=== PATIENT | male | born 1990 | race Caucasian/White ===

== ENCOUNTER 2025-01-06 05:27 | Emergency (ER) | payer BC, SELFPAY ==
[2025-01-06 05:32] VITALS: BP 131/95; PULSE 75; RESP 18; TEMP 36.6; O2SAT 100; BMI 26.6
[2025-01-06 06:30] VITALS: BP 167/89; PULSE 61; RESP 16; TEMP 36.7; O2SAT 98
--- NOTE | 2025-01-06 07:14 | ED.VIS.BACK ---
HPI History of Present Illness Chief Complaint: Back Informant: patient and spouse/S.O. Narrative Narrative: Presents with worsening lower back pain bilaterally. Symptoms started at noon yesterday he was lifting 5 gallon paint buckets he stumbled tweaking his lower back. No pain down the legs no loss of bowel or bladder control. No fevers. No history of IV drug use. He had meloxicam for which he took and then took additional Advil later. No urinary symptoms. Symptoms worse with movement. Significant other had a TENS unit which was placed. He did go to chiropractor yesterday for which he is seen in the past. He had manipulation done. Reports told he had possible slipped disks. He awakened at 4 AM today with worsening pain therefore came here. [facility] Medical History Smoker Marijuana smoker Foreign body Home Medications ?Medication ?Instructions ?Recorded ?Last Taken ?Type bupropion HCl 150 mg tablet,12 hr 150 mg PO DAILY 01/06/25 Unknown History sustained-release (Wellbutrin SR) diazepam 5 mg tablet 5 mg PO Q8 PRN Muscle Spasm #12 01/06/25 Unknown Rx tabs doxycycline monohydrate 100 mg 100 mg PO DAILY 01/06/25 Unknown History tablet ibuprofen 600 mg tablet 600 mg PO Q6H PRN PRN pain #20 01/06/25 Unknown Rx TABLETS meloxicam 15 mg tablet 15 mg PO DAILY PRN pain 01/06/25 Unknown History prednisone 20 mg tablet 60 mg (3 x 20 mg) PO DAILY #15 01/06/25 Unknown Rx TABLETS Allergy/AdvReac Type Severity Reaction Status Date / Time amoxicillin AdvReac Hives Verified 01/06/25 05:30 Penicillins AdvReac Hives Verified 01/06/25 05:30 Surgical History Hx of wisdom tooth extraction Social History Smoking Status: Current every day smoker tobacco type: cigarettes ROS ROS ED Constitutional Constitutional ED: Denies fever(s) Cardiovascular Cardiovascular: Denies chest pain Respiratory/Chest Respiratory/Chest: Denies cough Gastrointestinal Gastrointestinal: Denies diarrhea or vomiting Musculoskeletal Musculoskeletal: Reports back pain; Denies none Integumentary Denies rash or wounds Neurologic Neurologic: Denies weakness EXAM Physical Exam Const Vital Signs: 01/06/25 05:32 01/06/25 05:38 01/06/25 06:30 Temperature 97.8 F 98.0 F Temperature Source Oral Pulse Rate 75 61 Respiratory Rate 18 16 Respiratory Effort Normal Non-Labored Respiratory Pattern Normal Blood Pressure 131/95 H 167/89 H Blood Pressure Mean 107 115 Pulse Ox 100 98 Oxygen Delivery Method Room Air Positive well nourished and well developed General Appearance ED: well developed and NAD HEENT Reports moist mucous membranes normocephalic and atraumatic Eyes General Eye ED: Yes normal appearance of both eyes Neck full ROM Chest Wall Chest: Negative for tenderness Resp normal respiratory effort and normal air movement Effort and Inspection: symmetric chest movement; Negative for respiratory distress Cardio regular rate, regular rhythm and no murmurs Peripheral Pulses: pulses 2+ throughout GI normal to inspection, nondistended, normoactive bowel sounds and non-tender Palpation: Negative for guarding or rebound tenderness present Back/Spine Back/Spine Narrative: Reproducible paralumbar tenderness no midline tenderness no step-off straight leg test negative bilaterally. 1+ patellar reflex bilaterally. Extremity normal to inspection General Extremety ED: Negative for edema or tenderness General Extremity: Negative for edema Neuro oriented x3 and no sensory deficits noted Sensorium / Orientation: awake and alert Skin no rashes or lesions noted and no wounds MDM MDM MDM Narrative Medical decision making narrative: Interventions / MDM: Differential diagnosis: Acute lumbar strain. Diagnosis considered but do not suspect: No cauda equina symptoms. No lumbar radiculopathy symptoms. My EKG interpretation: N/A Imaging independently reviewed and interpreted by myself: N/A External documents reviewed: N/A Test considered but not ordered:N/A ED course: Patient history consistent with lumbar strain. No cauda equina symptoms. Started on muscle relaxers with Valium along with prednisone. We will use ibuprofen. He will hold his meloxicam. Prednisone continued Valium continued as needed. Outpatient follow-up with his doctor. All questions were answered. Re-evaluation: stable Disposition discussed with patient/family/significant other: Patient and significant other Case discussed with consulting clinician: N/A This note was generated with [employer] dictation software. It may contain incorrect words, spelling, and punctuation that were not noted in checking the note before signing. Discharge Plan Triage Chief Complaint: Back ED Provider: Teto Cantor Dx/Rx/DC Orders Clinical Impression: Acute lumbar myofascial strain, Back pain Instructions: ED Back Sprain/Strain Prescriptions: New ibuprofen 600 mg tablet 600 mg PO Q6H PRN PRN (Reason: pain) Qty: 20 0RF diazepam 5 mg tablet 5 mg PO Q8 PRN (Reason: Muscle Spasm) Qty: 12 0RF prednisone 20 mg tablet 60 mg PO DAILY Qty: 15 0RF No Action doxycycline monohydrate 100 mg tablet 100 mg PO DAILY bupropion HCl [Wellbutrin SR] 150 mg tablet sustained-release 12 hr 150 mg PO DAILY meloxicam 15 mg tablet 15 mg PO DAILY PRN (Reason: pain) Primary Care Provider: Dre Whitney Referrals: Dre Whitney MD [Primary Care Provider] - 1-2 Weeks Activity Restrictions/Additional Instructions: Hold your meloxicam. Take prescription medicines as prescribed. No driving or heavy machinery while using diazepam. Follow-up with your doctor. Print Language: Grenadian Disposition Disposition: Home, Self Care Discharge Date/Time: 01/06/25 06:36
== END 2025-01-06 06:36 | disposition home or self-care (01) ==
PROVIDERS: Emergency Provider Emergency Medicine; Visit Provider Emergency Medicine
DX: S39.012A Strain of muscle, fascia and tendon of lower back, initial encounter (principal); F17.210 Nicotine dependence, cigarettes, uncomplicated; X50.0XXA Overexertion from strenuous movement or load, initial encounter
CPT/HCPCS: 99285

== ENCOUNTER 2025-01-25 06:54 | Emergency (ER) | payer BC, SELFPAY ==
[2025-01-25 06:55] VITALS: BP 164/103; PULSE 75; RESP 18; TEMP 36.8; O2SAT 98; BMI 28.1
[2025-01-25 06:59] VITALS: BP 164/103; PULSE 65; RESP 18; TEMP 36.8; O2SAT 100
--- NOTE | 2025-01-25 07:17 | CT_ITS ---
PROCEDURE: ABDOMEN/PELVIS WITHOUT CONT 01/25/2025 REASON FOR EXAM: PAIN Renal stone. Testicular pain TECHNIQUE: ABDOMEN/PELVIS WITHOUT CONT Noncontrast technique limits evaluation of the abdominal and pelvic viscera. Coronal and Sagittal reconstruction series were provided. One or more dose reduction techniques were used (e.g., Automated exposure control, adjustment of the mA and/or kV according to patient size, use of iterative reconstruction technique). RADIATION DOSE SUMMARY: CTDlvol: 9.5 mGy DLP: 561 mGycm COMPARISON: None FINDINGS: Lung bases: Clear Liver: Normal Gallbladder: Normal Spleen: Normal Pancreas: Normal Adrenals: Normal Kidneys: Mild congestion at the right kidney. Mild hydronephrosis and hydroureter related to a 4.3 mm calculus at the ureterovesical junction, UVJ. Of the left kidney and collecting system are unremarkable. Bladder: No bladder distention or bladder wall thickening. Reproductive Organs: Normal prostate Bowel: Stomach is unremarkable. Small bowel and colon are unremarkable. Appendix: Normal Lymph nodes: None appear enlarged. Vasculature: Very mild atherosclerotic plaque without aneurysm. Peritoneum / Retroperitoneum: No free air or free fluid. No mass. Bones: Normal Abdominal wall: Intact. No inguinal hernia seen. CT/Abdomen/Pelvis without Cont IMPRESSION: Mild hydronephrosis, hydroureter related to a 4.3 mm calculus located at the ri ght ureterovesical junction. Very mild aortic atherosclerosis without aneurysm. This is greater than would be expected for age. Correlate with risk factors. Reading Location: [id number]
--- NOTE | 2025-01-25 07:22 | EDS_ITS ---
HPI History of Present Illness Chief Complaint: Male Pain/Injury Narrative Narrative: Chief complaint and HPI: Right flank pain. 34-year-old male with past medical history of urolithiasis but does not follow with urology presents for evaluation of right flank pain. Onset 2 days ago. Pain increased today and is radiating into the right testicle. States he went to a [facility] yesterday and they started him on Flomax and gave him ibuprofen. Associated symptom is nausea and difficulty urinating. Denies any fever, chills, shortness of breath, chest pain. Review of systems: See HPI Medications: As listed on the chart Allergies: As listed on the chart PFSH: Per chart Vital signs: As listed on the chart. Reviewed. Physical exam: Gen: A&O x3, moving around in the bed trying to get comfortable Head: Normocephalic, atraumatic Eyes: No sclera icterus, conjunctiva clear ENT: Moist mucous membranes Neck: Trachea midline, No JVD CV: RRR, no murmurs, no peripheral edema Resp: Lungs CTA BL, no w/r/c GI: Abd soft, non-distended, tender to palpation in the right flank, no r/r/g : No CVA tenderness. Circumcised penis. No penile tenderness or discharge. No penile or testicular swelling. Normal lie and position of the testicles. No testicular masses or skin changes. Right testicle diffusely tender to palpation. Cremasteric reflexes intact and equal bilaterally. No rashes. No palpable hernias. Musc: Full ROM, no deformity Skin: Warm, dry Neuro: Alert, oriented, grossly intact, sensation intact Psych: Cooperative, appropriate mood and affect [facility] Medical History Smoker Marijuana smoker Foreign body Home Medications ?Medication ?Instructions ?Recorded ?Last Taken ?Type bupropion HCl 150 mg tablet,12 hr 150 mg PO DAILY 12/14 11/06 Unknown History sustained-release (Wellbutrin SR) diazepam 5 mg tablet 5 mg PO Q8 PRN Muscle Spasm #12 01/06/25 Unknown Rx tabs doxycycline monohydrate 100 mg 100 mg PO DAILY 5 Unknown History tablet ibuprofen 600 mg tablet 600 mg PO Q6H PRN PRN pain # 20 01/06/25 Unknown Rx TABLETS meloxicam 15 mg tablet 15 mg PO DAILY PRN pain 12/14 11/06 Unknown History tamsulosin 0.4 mg capsule 0.4 mg PO Q24H 01/25/25 Unkn own History Allergy/AdvReac Type Severity Reaction Status Date / Time amoxicillin AdvReac Hives Verified 01/06/25 05:30 Penicillins AdvReac Hives Verified 01/06/25 05:30 Surgical History Hx of wisdom tooth extraction Social History Smoking Status: Current every day smoker tobacco type: cigarettes EXAM Physical Exam Const Vital Signs: 01/25/25 06:55 01/25/25 06:59 01/25/25 07:59 Temperature 98.2 F 98.2 F 97.6 F L Temperature Source Temporal Temporal Temporal Pulse Rate 75 65 56 L Respiratory Rate 18 18 16 Blood Pressure 164/103 H 164/103 H 161/103 H Blood Pressure Mean 123 123 122 Pulse Ox 98 100 97 Oxygen Delivery Method Room Air Room Air Room Air MDM MDM MDM Narrative Medical decision making narrative: 34-year-old male with past medical history of urolithiasis but does not follow with urology presents for evaluation of right flank pain. Onset 2 days ago. Pain increased today and is radiating into the right testicle. States he went to a [facility] yesterday and they started him on Flomax and gave him ibuprofen. Associated symptom is nausea and difficulty urinating. Differential diagnosis includes but is not limited to urolithiasis, urinary retention, UTI, pyelonephritis, suspect less likely testicular pathology although in the differential. NS bolus, Zofran, morphine ordered for symptoms. Abdominal pain workup ordered including CT abdomen pelvis without contrast. Given patient is endorsing difficulty urinating will perform bladder scan. Patient's bladder scan is only in the 50s. No urinary retention. CBC without leukocytosis or anemia. BMP unremarkable without QUAN. Lactic acid unremarkable. Urine positive for blood but negative for UTI. CT abdomen pelvis shows mild hydronephrosis, hydroureter related to a 4.3 mm calculus located at the right UVJ. Very mild aortic atherosclerosis. Testicular ultrasound shows small bilateral hydroceles. No torsion. On reevaluation, patient still in pain despite Toradol, morphine. Dilaudid ordered. He will warrant admission for pain control. Patient states that he does not want to be admitted. He states he would rather discharge home with pain medicine. Patient did receive relief from Dilaudid. He is comfortable in the bed. I did inform him that there is a chance that his pain will recur and reiterated my concern for home pain control. He states that he absolutely does not want to be admitted. Patient will be discharged home on narcotics for pain control and antinausea medicine. He is to continue the Flomax. Follow-up with urology. Return precautions explained. He confirmed understand the plan. Patient stable to discharge home. Impression: 1. Right UVJ urolithiasis with a 4.3 mm calculus, mild hydronephrosis and hydroureter 2. Right testicle pain secondary to #1 Lab Data Labs: Laboratory Results - last 24 hr 01/25/25 01/25/25 01/25/25 07:03 07:39 07:40 WBC 8.6 RBC 4.88 Hgb 15.5 Hct 44.4 MCV 91.0 MCH 31.8 MCHC 34.9 RDW Std Deviation 41.3 RDW Coeff of Goldy 12.5 Plt Count 326 MPV 9.8 Immature Gran % (Auto) 0.200 Neut % (Auto) 65.6 Lymph % (Auto) 23.3 [place] % (Auto) 8.1 Eos % (Auto) 2.3 Baso % (Auto) 0.5 Absolute Neuts (auto) 5.6 Absolute Lymphs (auto) 1.99 Nucleated RBC % 0 Sodium 137 Potassium 3.8 Chloride 102 Carbon Dioxide 22.9 Anion Gap 12 BUN 19 Creatinine 1.08 Estim Creat Clear Calc 109.31 Est GFR (MDRD) Non-Af 93 BUN/Creatinine Ratio 17.2 Glucose 107 H Lactic Acid < 1.0 Calcium 9.6 Urine Color Yellow Urine Clarity Clear Urine pH 6.0 Ur Specific [place] 1.010 Urine Protein 15 H Urine Glucose (UA) Normal Urine Ketones Negative Urine Occult Blood 250 H Urine Nitrite Negative Urine Bilirubin Negative Urine Urobilinogen Normal Ur Leukocyte Esterase Negative Urine RBC 0 SEEN Urine WBC 0 SEEN Ur Squamous Epith Cells 0-5 SEEN Urine Bacteria 0 SEEN Urine Mucus 0 SEEN Radiography Diagnostic Testing: Clinical Impression(s) from Imaging Studies Abdomen/Pelvis CT 01/25/25 07:17 IMPRESSION: Mild hydronephrosis, hydroureter related to a 4.3 mm calculus located at the right ureterovesical junction. Very mild aortic atherosclerosis without aneurysm. This is greater than would be expected for age. Correlate with risk factors. Reading Location: [id number] Testicular Ultrasound 01/25/25 08:18 IMPRESSION: Small bilateral hydroceles. No intratesticular abnormality is seen. Normal blood flow to both testes. Reading Location: [id number] Discharge Plan Triage Chief Complaint: Male Pain/Injury ED Provider: Ronald Bocanegra Dx/Rx/DC Orders Prescriptions: No Action doxycycline monohydrate 100 mg tablet 100 mg PO DAILY bupropion HCl [Wellbutrin SR] 150 mg tablet sustained-release 12 hr 150 mg PO DAILY meloxicam 15 mg tablet 15 mg PO DAILY PRN (Reason: pain) ibuprofen 600 mg tablet 600 mg PO Q6H PRN PRN (Reason: pain) Qty: 20 0RF diazepam 5 mg tablet 5 mg PO Q8 PRN (Reason: Muscle Spasm) Qty: 12 0RF tamsulosin 0.4 mg capsule 0.4 mg PO Q24H Primary Care Provider: Dre Whitney Referrals: Dre Whitney MD [Primary Care Provider] - Print Language: Persian
[2025-01-25] MEDS: 0.9% Normal Saline (1000mL) 1,000 ML 999 ML IV (07:29)
[2025-01-25 07:33] LABS: Hematocrit 44.4 % (40-54); Hemoglobin 15.5 g/dL (13.0-16.5); Immature Granulocytes Count 0.020 X10^3/uL (0.0-0.0); Mean Corp Hgb Conc 34.9 g/dL (32-36); Mean Corpuscular Volume 91.0 fL (80-94); Mean Platelet Vol. 9.8 fl (6.2-12.0); NRBC Flagged by Analyzer 0 % (0-5); Platelet Count 326 K/mm3 (150-450); RBC Distribution Width CV 12.5 % (11.6-14.6); RBC Distribution Width SD 41.3 fl (35.1-43.9); Red Blood Count 4.88 M/mm3 (4.6-6.2); White Blood Count 8.6 K/mm3 (4.4-11.0)
[2025-01-25 07:52] LABS: Mucous, Urine 0 SEEN /hpf (<or=2+); Red Blood Cells-Urine 0 SEEN /hpf (0-5)
[2025-01-25 07:59] VITALS: BP 161/103; PULSE 56; RESP 16; TEMP 36.4; O2SAT 97
[2025-01-25 08:07] LABS: Anion Gap 12 (5-15); BUN 19 mg/dL (4-19); BUN/Creat Ratio 17.2 RATIO (10-20); Calcium,Total 9.6 mg/dL (7.6-11.0); Carbon Dioxide 22.9 mmol/L (21.0-32.0); Chloride 102 mmol/L (98-108); Estimated Creatinine Clearance 109.31 ml/min (50-250); Glucose 107 mg/dL (70-99); Potassium 3.8 mmol/L (3.3-5.1)
[2025-01-25] MEDS: Ketorolac 30 MG/ML Syringe IV (08:16)
--- NOTE | 2025-01-25 08:18 | US_ITS ---
PROCEDURE: TESTICULAR WITH ARTERIAL FLOW 01/25/2025 REASON FOR EXAM: 1 day history of right testicular pain. TECHNIQUE: TESTICULAR WITH ARTERIAL FLOW COMPARISON: None FINDINGS: RIGHT testicle: 5.3 cm x 3.4 cm x 2.5 cm Right epididymis: 0.7 cm x 1.4 cm x 1.1 cm LEFT testicle: 5.3 cm x 3.3 cm x 2.5 cm Left epididymis: 0.9 cm by 1.7 cm x 1 cm Other findings: Small bilateral hydroceles. US/Testicular with Arterial Flow IMPRESSION: Small bilateral hydroceles. No intratesticular abnormality is seen. Normal blood flow to both testes. Reading Location: [id number]
[2025-01-25 08:26] LABS: Color, Urine Yellow (Yellow); Glucose, Dipstick Normal (Normal); Ketone-Dipstick Negative (Negative); Leukocyte Esterase-Dipstick Negative /ul (Negative); Nitrite-Dipstick Negative (Negative); Occult Blood-Urine 250 /ul (Negative); Protein-Dipstick 15 mg/dl (Negative); Specific Gravity, Urine 1.010 (1.002-1.030); Urine Bilirubin Dipstick Negative (Negative)
[2025-01-25 08:38] LABS: Squamous Epithelial Cells - UA 0-5 SEEN /hpf (0-5)
--- OUTSIDE RECORDS SUMMARY | 2025-01-25 08:39 | XMS RPT_ITS | CCD ---
Author Organization [facility] Care Team Providers Care Drainlayer Name Role Phone PROVIDER, UNKNOWN Unavailable Unavailable Homer Hernandez Unavailable Unavailable MARK DOYLE Unavailable Unavailable PROVIDER, UNKNOWN Unavailable Unavailable Homer Hernandez Unavailable Unavailable Unavailable Primary Care Provider UnavailMERVIN العراقي Attending Unavailable JUAN R TREVINO Attending Unavailmanfred KAISER MD, ANY Fuller Primary Care Unavailab Christi PALOMARES, ANY Fuller Attending Unavailab Christi PALOMARES, ANY Fuller Primary Care Unavailab Christi PALOMARES, Dr. Erickson Primary Care Provider Dr. Teto Cantor DO Emergency Provider Any [facility] Unavailable Teto Cantor Attending Unavailable Allergies Allergy Classification Reported Allergen(s) Allergy Type Date of Onset Reaction(s) Facility (1 source) Penicillins Drug Allergy [address] [facility] (1 source) Amoxicillin Drug Allergy 5 [facility] (1 source) Penicillins Propensity to adverse reactions 5 [facility] (1 source) Amoxicillin Drug Allergy 5 [facility] (1 source) Penicillins Drug allergy (disorder) 5 [facility] Medications Current Medications Medication Drug Class(es) Dates Sig (Normalized) Sig (Original) 12 hr buPROPion hydrochloride 150 mg extended release oral tablet (1 source) Aminoketone Start: 01-06-2025 take 1 tablet by mouth once daily Bupropion Hcl (Wellbutrin Sr) 150 mg tablet sustained-release 12 hr Active 150 mg PO DAILY January 06, 2025 12:00am diazePAM 5 mg oral tablet (1 source) Benzodiazepine Start: 01-06-2025 take 1 tablet by mouth every eight hours as needed for muscle spasms Diazepam 5 mg tablet Active 5 mg PO EVERY 8 HOURS as needed for Muscle Spasm 12 January 06, 2025 12:00am doxycycline monohydrate 100 mg oral tablet (1 source) Tetracycline-class Drug Start: 01-06-2025 take 1 tablet by mouth once daily Doxycycline Monohydrate 100 mg tablet Active 100 mg PO DAILY January 06, 2025 12:00am ibuprofen 600 mg oral tablet (1 source) Nonsteroidal Anti-inflammatory Drug Start: 01-06-2025 take 1 tablet by mouth every six hours as needed for pain Ibuprofen 600 mg tablet Active 600 mg PO EVERY 6 HOURS NEEDED as needed for pain 20 January 06, 2025 12:00am meloxicam 15 mg oral tablet (1 source) Nonsteroidal Anti-inflammatory Drug Start: 01-06-2025 take 1 tablet by mouth once daily as needed for pain Meloxicam 15 mg tablet Active 15 mg PO DAILY as needed for pain January 06, 2025 12:00am predniSONE 20 mg oral tablet (1 source) Start: 01-06-2025 take 3 tablets by mouth once daily Prednisone 20 mg tablet Active 60 mg PO DAILY 15 January 06, 2025 12:00am Completed/Discontinued Medications Medication Drug Class(es) Dates Sig (Normalized) Sig (Original) azithromycin 250 mg oral tablet (1 source) Macrolide Antimicrobial Start: 06-11-2022 azithromycin (ZITHROMAX Z-KRUPA) 250 mg tablet Indications: Sore throat 2 tablets by mouth first day then 1 tablet the next 4 days 6 tablet 0 06/11/2022 Active Comment on above: 2 tablets by mouth f irst day then 1 tablet the next 4 days Problems Problem Classification Problem Date Documented Da te Episodic/Chronic Fever of unknown origin (1 source) Fever; Translations: [Fever, unspecified] Episodic Malaise and fatigue (2 sources) Other fatigue; Translations: [Other fatigue] Onset: 11-28-2024 Episodic Mood disorders (2 sources) Mood disorders; Translations: [Depression, unspecified] Onset: 11-28-2024 Other upper respiratory infections (1 source) Sore throat symptom; Translations: [Acute pharyngitis, unspecified] Episodic Spondylosis; intervertebral disc disorders; other back problems (2 sources) Backache; Translations: [Dorsalgia, unspecified] Onset: 01-12-2025 01-06-2025 Episodic Sprains and strains (1 source) Lower back injury; Translations: [Strain of muscle, fascia and tendon of lower back, initial encounter] 01-06-2025 Episodic Results Test Name Value Interpretation Reference Range Facility Emergency Department Summary on 01-06-2025 Emergency Department Summary [facility] Medical Records Department [address] [place] [address] Emergency Department Summary 01/06/25 MR#: [id number] Acct: [id number] Name: DENYS LAROSE Rep #: [id number] : 1990 34 From: Teto Thao PCP: Dr. Any [facility] MD Status:DEP ER Location: ED HPI History of Present Illness Chief Complaint: Back Informant: patient and spouse/S.O. Narrative Narrative: Presents with worsening lower back pain bilaterally. Symptoms started at noon yesterday he was lifting 5 gallon paint buckets he stumbled tweaking his lower back. No pain down the legs no loss of bowel or bladder control. No fevers. No history of IV drug use. He had meloxicam for which he took and then took additional Advil later. No urinary symptoms. Symptoms worse with movement. Significant other had a TENS unit which was placed. He did go to chiropractor yesterday for which he is seen in the past. He had manipulation done. Reports told he had possible slipped disks. He awakened at 4 AM today with worsening pain therefore came here. [facility] Medical History Smoker Marijuana smoker Foreign body Home Medications ???Medication ???Instructions ???Recorded ???Last Taken ???Type bupropion HCl 150 mg tablet,12 hr 150 mg PO DAILY 01/06/25 Unknown History sustained-release (Wellbutrin SR) diazepam 5 mg tablet 5 mg PO Q8 PRN Muscle Spasm #12 Unknown Rx tabs doxycycline monohydrate 100 mg 100 mg PO DAILY 01/06/25 Unknown H istory tablet ibuprofen 600 mg tablet 600 mg PO Q6H PRN PRN pain #20 Unknown Rx TABLETS meloxicam 15 mg tablet 15 mg PO DAILY PRN pain 01/06/25 U nknown History prednisone 20 mg tablet 60 mg (3 x 20 mg) PO DAILY #15 Unknown Rx TABLETS Allergy/AdvReac Type Severity Reaction Status Date / Time amoxicillin AdvReac Hives Verified 01/06/25 05:30 Penicillins AdvReac Hives Verified 01/06/25 05:30 Surgical History Hx of wisdom tooth extraction Social History Smoking Status: Current every day smoker tobacco type: cigarettes ROS ROS ED Constitutional Constitutional ED: Denies fever(s) Cardiovascular Cardiovascular: Denies chest pain Respiratory/Chest Respiratory/Chest: Denies cough Gastrointestinal Gastrointestinal: Denies diarrhea or vomiting Musculoskeletal Musculoskeletal: Reports back pain; Denies none Integumentary Denies rash or wounds Neurologic Neurologic: Denies weakness EXAM Physical Exam Const Vital Signs: 01/06/25 05:32 01/06/25 05:38 01/06/25 06:30 Temperature 97.8 F 98.0 F Temperature Source Oral Pulse Rate 75 61 Respiratory Rate 18 16 Respiratory Effort Normal Non-Labored Respiratory Pattern Normal Blood Pressure 131/95 H 167/89 H Blood Pressure Mean 107 115 Pulse Ox 100 98 Oxygen Delivery Method Room Air Positive well nourished and well developed General Appearance ED: well developed and NAD HEENT Reports moist mucous membranes normocephalic and atraumatic Eyes General Eye ED: Yes normal appearance of both eyes Neck full ROM Chest Wall Chest: Negative for tenderness Resp normal respiratory effort and normal air movement Effort and Inspection: symmetric chest movement; Negative for respiratory distress Cardio regular rate, regular rhythm and no murmurs Peripheral Pulses: pulses 2+ throughout GI normal to inspection, nondistended, normoactive bowel sounds and non-tender Palpation: Negative for guarding or rebound tenderness present Back/Spine Back/Spine Narrative: Reproducible paralumbar tenderness no midline tenderness no step-off straight leg test negative bilaterally. 1+ patellar reflex bilaterally. Extremity normal to inspection General Extremety ED: Negative for edema or tenderness General Extremity: Negative for edema Neuro oriented x3 and no sensory deficits noted Sensorium / Orientation: awake and alert Skin no rashes or lesions noted and no wounds MDM MDM MDM Narrative Medical decision making narrative: Interventions / MDM: Differential diagnosis: Acute lumbar strain. Diagnosis considered but do not suspect: No cauda equina symptoms. No lumbar radiculopathy symptoms. My EKG interpretation: N/A Imaging independently reviewed and interpreted by myself: N/A External documents reviewed: N/A Test considered but not ordered:N/A ED course: Patient history consistent with lumbar strain. No cauda equina symptoms. Started on muscle relaxers with Valium along with prednisone. We will use ibuprofen. He will hold his meloxicam. Prednisone continued Valium continued as needed. Outpatient follow-up (more content not included)... Normal [facility] .Auto Diffon 11-28-2024 Basophil, Absolute 0.1 10 3/mcL Normal 0.0-0.3 [facility] Comment on above: Performed By: #### T SH, ANEU, CMP, FT4, ADIFF, CBC, GFR #### [address] [address] Basophils/100 WBC (Bld) 1.3 % Normal 0.0-2.5 [facility] Comment on above: Performed By: #### T SH, ANEU, CMP, FT4, ADIFF, CBC, GFR #### [address] [address] Eosinophil, Absolute 0.2 10 3/mcL Normal 0.0-0.7 [facility] Comment on above: Performed By: #### T SH, ANEU, CMP, FT4, ADIFF, CBC, GFR #### [address] [address] Eosinophils/100 WBC (Bld) 3.0 % Normal 0.0-6.0 [facility] Comment on above: Performed By: #### T SH, ANEU, CMP, FT4, ADIFF, CBC, GFR #### [address] [address] Lymphocyte, Absolute 1.7 10 3/mcL Normal 0.9-4.3 [facility] Comment on above: Performed By: #### T SH, ANEU, CMP, FT4, ADIFF, CBC, GFR #### [address] [address] Lymphocytes/100 WBC (Bld) 26.5 % Normal 20.0-40.0 [facility] Comment on above: Performed By: #### T SH, ANEU, CMP, FT4, ADIFF, CBC, GFR #### [facility] [address] [place] [address] Monocyte, Absolute 0.5 10 3/mcL Normal 0.1-1.4 [facility] Comment on above: Performed By: #### T SH, ANEU, CMP, FT4, ADIFF, CBC, GFR #### [address] [address] Monocytes/100 WBC (Bld) 8.1 % Normal 2.0-13.0 [facility] Comment on above: Performed By: #### T SH, ANEU, CMP, FT4, ADIFF, CBC, GFR #### [address] [address] Neutrophils/100 WBC (Bld) 61.1 % Normal 50.0-75.0 [facility] Comment on above: Performed By: #### T SH, ANEU, CMP, FT4, ADIFF, CBC, GFR #### [address] [address] .GFRon 11-28-2024 Estimated Glomerular Filtration Rate 116 ml/min/1.73sqm Normal [facility] Comment on above: Result Comment: Stages of Chronic Kidney Disease (CKD) Stage Description eGFR(ml/min/1.73 sq.m.) CKD 1 Normal kidney function or >=90 normal kindney function with possible kidney damage (ex. Proteinuria) CKD 2 Kidney damage with mild loss 60-89 of kidney function CKD 3a Mild to moderate loss of kidney 45-59 function CKD 3b Moderate to severe loss of 30-44 of kindey function CKD 4 Severe loss of kidney function 15-29 CKD 5 Kidney failure <15 Note: (go live 2024) the eGFR calculation was updated to the 2020 CKD-EPI creatinine equation without a race factor to calculate the eGFR results. Performed By: #### T SH, ANEU, CMP, FT4, ADIFF, CBC, GFR #### [facility] [address] [place] [address] .NEUABSon 11-28-2024 Neutrophil, Absolute 3.9 10 3/mcL Normal 2.3-8.1 [facility] Comment on above: Performed By: #### T SH, ANEU, CMP, FT4, ADIFF, CBC, GFR #### [place] [id number] CBCon 11-28-2024 Erythrocyte distribution width (RBC) [Ratio] 13.1 % Normal 11.5-15.5 [facility] Comment on above: Performed By: #### T SH, ANEU, CMP, FT4, ADIFF, CBC, GFR #### [place] [address] Hematocrit (Bld) [Volume fraction] 47.3 % Normal 40.0-52.0 [facility] Comment on above: Performed By: #### T SH, ANEU, CMP, FT4, ADIFF, CBC, GFR #### [place] [address] Hgb 16.6 G/dL Normal 13.0-17.5 [facility] Comment on above: Performed By: #### T SH, ANEU, CMP, FT4, ADIFF, CBC, GFR #### [place] [address] MCH (RBC) [Entitic mass] 31.8 pg Normal 27.0-33.0 [facility] Comment on above: Performed By: #### T SH, ANEU, CMP, FT4, ADIFF, CBC, GFR #### [place] [address] MCHC 35.1 G/dL Normal 32.0-36.0 [facility] Comment on above: Performed By: #### T SH, ANEU, CMP, FT4, ADIFF, CBC, GFR #### [place] [address] MCV (RBC) [Entitic vol] 90.8 fL Normal 81.0-100.0 [facility] Comment on above: Performed By: #### T SH, ANEU, CMP, FT4, ADIFF, CBC, GFR #### [place] [address] Platelet 332 10 3/mcL Normal 150-450 [facility] Comment on above: Performed By: #### T SH, ANEU, CMP, FT4, ADIFF, CBC, GFR #### [place] [address] Platelet mean volume (Bld) [Entitic vol] 8.3 fL Normal 6.4-10.5 [facility] Comment on above: Performed By: #### T SH, ANEU, CMP, FT4, ADIFF, CBC, GFR #### [place] [address] RBC 5.21 10 6/mcL Normal 4.50-6.00 [facility] Comment on above: Performed By: #### T SH, ANEU, CMP, FT4, ADIFF, CBC, GFR #### [place] [address] WBC 6.4 10 3/mcL Normal 4.5-10.8 [facility] Comment on above: Performed By: #### T SH, ANEU, CMP, FT4, ADIFF, CBC, GFR #### [place] [address] CMPon 11-28-2024 Albumin Level 4.6 G/dL Normal 3.2-4.8 [facility] Comment on above: Performed By: #### T SH, ANEU, CMP, FT4, ADIFF, CBC, GFR #### [place] [address] Albumin/Globulin [Mass ratio] 1.6 {ratio} Normal 0.9-1.6 [facility] Comment on above: Performed By: #### T SH, ANEU, CMP, FT4, ADIFF, CBC, GFR #### [place] [address] ALP [Catalytic activity/Vol] 80 U/L Normal 38-126 [facility] Comment on above: Performed By: #### T SH, ANEU, CMP, FT4, ADIFF, CBC, GFR #### [place] [address] ALT [Catalytic activity/Vol] 33 U/L Normal 12-55 [facility] Comment on above: Performed By: #### T SH, ANEU, CMP, FT4, ADIFF, CBC, GFR #### [address] [address] AST [Catalytic activity/Vol] 28 U/L Normal 8-34 [facility] Comment on above: Performed By: #### T SH, ANEU, CMP, FT4, ADIFF, CBC, GFR #### [address] [address] Bili Total 0.40 mg/dL Normal 0.20-1.20 [facility] Comment on above: Result Comment: Use of this assay is not recommended for patients undergoing treatment with eltrombopag due to the potential for falsely elevated results. Performed By: #### T SH, ANEU, CMP, FT4, ADIFF, CBC, GFR #### [place] [id number] BUN/Creatinine Ratio 13.3 ratio Normal 10.0-22.0 [facility] Comment on above: Performed By: #### T SH, ANEU, CMP, FT4, ADIFF, CBC, GFR #### [place] [id number] Calcium [Mass/Vol] 9.5 mg/dL Normal 8.7-10.4 [facility] Comment on above: Performed By: #### T SH, ANEU, CMP, FT4, ADIFF, CBC, GFR #### [address] [address] Chloride [Moles/Vol] 107 mmol/L Normal 98-110 [facility] Comment on above: Performed By: #### T SH, ANEU, CMP, FT4, ADIFF, CBC, GFR #### [address] [address] CO2 [Moles/Vol] 24 mmol/L Normal 22-32 [facility] Comment on above: Performed By: #### T SH, ANEU, CMP, FT4, ADIFF, CBC, GFR #### [address] [address] Creatinine [Mass/Vol] 0.90 mg/dL Normal 0.60-1.40 [facility] Comment on above: Result Comment: Test ing performed on [employer] CH analyzer using enzymatic creatinine methodology. Performed By: #### T SH, ANEU, CMP, FT4, ADIFF, CBC, GFR #### [address] [address] Electrolyte Balance 9.0 mEq/L Normal 4.0-15.0 [facility] Comment on above: Performed By: #### T SH, ANEU, CMP, FT4, ADIFF, CBC, GFR #### [address] [address] Globulin 2.8 G/dL Normal 2.5-4.2 [facility] Comment on above: Performed By: #### T SH, ANEU, CMP, FT4, ADIFF, CBC, GFR #### [place] [id number] Glucose [Mass/Vol] 97 mg/dL Normal 70-110 [facility] Comment on above: Performed By: #### T SH, ANEU, CMP, FT4, ADIFF, CBC, GFR #### [place] [id number] Potassium [Moles/Vol] 4.5 mmol/L Normal 3.5-5.0 [facility] Comment on above: Performed By: #### T SH, ANEU, CMP, FT4, ADIFF, CBC, GFR #### [address] [address] Sodium [Moles/Vol] 140 mmol/L Normal 136-145 [facility] Comment on above: Performed By: #### T SH, ANEU, CMP, FT4, ADIFF, CBC, GFR #### [address] [address] Total Protein 7.4 G/dL Normal 5.7-8.2 [facility] Comment on above: Performed By: #### T SH, ANEU, CMP, FT4, ADIFF, CBC, GFR #### [address] [address] Urea nitrogen [Mass/Vol] 12.0 mg/dL Normal 8.0-22.0 [facility] Comment on above: Performed By: #### T SH, ANEU, CMP, FT4, ADIFF, CBC, GFR #### [facility] [address] [place] [address] FT4on 11-28-2024 Free T4 [Mass/Vol] 1.37 ng/dL Normal 0.89-1.76 [facility] Comment on above: Result Comment: No te - New Reference Range in effect 20 Performed By: #### T SH, ANEU, CMP, FT4, ADIFF, CBC, GFR #### [facility] [address] [place] [address] TSHon 11-28-2024 TSH 0.758 mIU/mL Normal 0.550-4.780 [facility] Comment on above: Performed By: #### T SH, ANEU, CMP, FT4, ADIFF, CBC, GFR #### [address] [address] Bacteria Throat Culton 06-12 Bacteria identified Cx Nom (Throat) CULTURE, THROAT: No Streptococcus pyogenes (Group A streptococcus) isolated. Normal [facility] Comment on above: Performed By: #### 6 26-2 #### [facility] CLIA [id number] [address] [place] [address] [place] CNOVon 06-11-2022 CNOV Office Visit (UCUPNO ) DENYS LAROSE ([id number]) 1990 M Date Time Provider Department 06/11/22 1:10 PM GEOVANY ENCISO During your visit today, we recorded the following information about you: Temperature Pulse Respiration Blood pressure 98.3 degrees 102/minute 20/minute 157/110 Weight 83.5 kg Geovany Enciso APRN.CNP 06/11/2022 4:31 PM Signed June 11, 2022 Subjective Chief Complaint: Sore Throat (X today/Ibuprofen last dose today), Ear Problem (Left ear pa x this am), and Fever (X today/102.7) HPI: Denys Larose is a 31 year old male who presents today for for a 2 day history of sore throat, ear pain, cough, fever, and general malaise. States he was exposed to strep throat. No OTC medications. No other concerns at this time. PAST MEDICAL HISTORY Diagnosis Date Attention deficit hyperactivity disorder Depression MRSA (methicillin resistant staph aureus) culture positive Suicide attempt (HCC) PAST SURGICAL HISTORY Procedure Laterality Date DENTAL SURGERY HX History reviewed. No pertinent family history. Social History Tobacco Use Smoking status: Every Day Packs/day: 0.50 Types: Cigarettes Smokeless tobacco: Never Vaping Use Vaping Use: Former Substances: THC Substance Use Topics Alcohol use: Not Currently Drug use: Not Currently Types: Cocaine, Marijuana ALLERGIES Allergen Reactions Penicillins Rash per [facility] in Infusion Services patient states rash all over body There is no immunization history on file for this patient. Current Medications: No prescriptions on file. Review of Systems Constitutional: Positive for chills, fever and malaise/fatigue. HENT: Positive for congestion and sore throat. Respiratory: Positive for cough and shortness of breath. Negative for wheezing. Cardiovascular: Negative for chest pain and palpitations. Gastrointestinal: Negative for diarrhea, nausea and vomiting. Musculoskeletal: Positive for myalgias. Skin: Negative for rash. Neurological: Positive for headaches. Objective BP 157/110 Pulse 102 Temp 98.3 Resp 20 Wt 184 lb (83.5kg) SpO2 98% Physical Exam Vitals and nursing note reviewed. Constitutional: General: He is not in acute distress. Appearance: He is not diaphoretic. Comments: Appears ill HENT: Head: Normocephalic and atraumatic. Right Ear: Tympanic membrane, ear canal and external ear normal. Left Ear: Tympanic membrane, ear canal and external ear normal. Nose: Mucosal edema and rhinorrhea present. Mouth/Throat: Lips: Cherry. Pharynx: Uvula midline. Pharyngeal swelling and posterior oropharyngeal erythema present. Cardiovascular: Rate and Rhythm: Normal rate and regular rhythm. Heart sounds: Normal heart sounds. Pulmonary: Effort: Pulmonary effort is normal. No respiratory distress. Breath sounds: Normal breath sounds. No wheezing or rales. Lymphadenopathy: Head: Right side of head: No submental, submandibular or tonsillar adenopathy. Left side of head: No submental, submandibular or tonsillar adenopathy. Skin: General: Skin is warm and dry. Findings: No rash. Neurological: Mental Status: He is alert and oriented to person, place, and time. ASSESSMENT/PLAN: 1. Sore throat - ICD9: 462, ICD10: J02.9 (primary diagnosis) - suspect strep - Rapid Strep negative in the office today and Throat culture pending - Discussed supportive care treatment with fluids, rest and analgesia. - The patient should follow up in one week if symptoms persist or worsen - RAPID STREP TEST B/O - THROAT CULTURE 2. Fever, unspecified fever cause - ICD9: 780.60, ICD10: R50.9 Flu negative - FLU A/B B/O Prescription instructions reviewed with patient as applicable. Patient advised if symptoms do not improve or if symptoms worsen sooner, to contact their primary care physician. Potential red flag symptoms discussed with the patient. Reviewed appropriate action plan to take if red flag symptoms occur. Patient agreeable to treatment plan. RODOLFO Pathak APRN.CNP 06/11/2022 4:31 PM Signed Your rapid strep was negative, we will call in 2-3 days if throat culture is positive. Will treat based on exposure Gargle with warm salt water, I recommend Tylenol or Ibuprofen for sore throat if needed. I recommend warm liquids and soft foods until symptoms resolve. Follow-up for recheck if your symptoms worsen or do not improve in 5-7 days. If you are having any trouble swallowing or breathing, seek immediate care in the ER for further evaluation. Referring Provider: SELF [[id number]] Allergies As of Date: 06/11/2022 Noted Allergy Reaction PENICILLINS 06/11/2022 2 - Rash Comments: per [facility] in [facility] Services patient states rash all over body Date Reviewed: 06/11/2022 Reviewed by: Geovany Enciso APRN.CNP - Fully Assessed Reason for Visit: Sore Throat (more content not included)... Normal [facility] RAPID STREP TEST B/Oon 06-11 Quality Check Yes [facility] S. pyogenes Ag IA Ql (Unsp spec) Negative neg - pos [facility] THROAT CULTUREon 06-11-2022 Throat culture CULTURE, THROAT No Streptococcus pyogenes (Group A streptococcus) isolated. SOURCE: THROAT SWAB Test Performed By: [facility] [address] [place] [address] Urogynecology Physician: Hussein Zhang III, M.D. See Below Normal [facility] Established Visit (Gastroent erology)on 09-21-2020 Established Visit (Gastroenterology) Diagnoses/Problems Assessed Colicky right lower quadrant pain (789.03) (R10.31) Orders Colicky right lower quadrant pain NM Meckels Diverticulum; Status:Hold For - Scheduling; Requested for:21Sep2020; Perform:[facility]; Order Comments:Tisha; Due:[id number];Ordered; For:Colicky right lower quadrant pain; Ordered By:Bridger Barron; Radiologist to Determine Optimal Study : Y What are the patient's signs and symptoms? : Right lower quadrant pain with intermittent bleeding. Normal colonoscopy. Family history of Crohn's disease Patient Discussion/Summary Impression: 1. 10-month history of intermittent severe right lower quadrant pain associated with intermittent blood in the stool. Patient symptoms suggest some sort of intermittent obstruction such as intussusception, volvulus, or possible Meckel's diverticulum. His symptoms seem to be escalating at this time. Recommendation: 1. Differential diagnosis was discussed with the patient. 2. Obtain nuclear medicine Meckel scan 3. Consider small bowel x-ray study to rule out intussusception but not noted on CT scan 4. Patient was concerned that he may have exocrine pancreatic insufficiency causing his symptoms this was discussed this probably not the case. 1 1 Amended By: Bridger Barron; Sep 22 2020 7:12 AM ESTChief Complaint An interactive audio and video telecommunication system which permits real time communications between the patient (at the originating site) and provider (at the distant site) was utilized to provide this telehealth service. Verbal consent was requested and obtained from DENYS LAROSE on this date, 09/21/2020 09:00 AM , for a telehealth visit. Intermittent abdominal pain with weight loss History of Present [id number]-muxy-igw male was recently evaluated for a 8-month history of intermittent episodes of severe right lower quadrant cramping pain associated with rectal bleeding. This is happened about 15 times over the past 8 months. He said he feels like he has a knife going into his right lower quadrant. Pain intensifies with defecation. He will wake up with this pain and then have a bloody bowel movement. He has about 5 bowel movements throughout the day with blood on the days that he has had these episodes. Normal days he averages about 2 or 3 formed stools a day without bleeding. CT scan of the abdomen was normal. His colonoscopy showed a very redundant left colon but a normal ileum. He was started on hyoscyamine which seemed to help but he says it made him too sleepy. He says his symptoms now are intensifying. He is having severe right-sided cramping pain every time he tries to eat. Pain lasts about 15-60 minutes. It is worse if he eats more so he has decreased his oral intake and has lost about 15 pounds. He continues to pass blood when he tries to move his bowels. He has belching after all meals but is worse in the morning. He wakes up at night about 3 in the morning with severe pain and has to try to defecate. CBC and chemistry profile were normal. Review of Systems ROS: Const: Denies fatigue, fever and reports 15 pound weight loss CV: Denies chest pain or palpitations. Resp: Denies cough or dyspnea. GI: Denies symptoms other than stated above. Other: Active Problems Problems Colicky right lower quadrant pain (789.03) (R10.31) Rectal bleeding (569.3) (K62.5) Past Medical History Problems History of attention deficit hyperactivity disorder (ADHD) (V11.8) (Z86.59) History of depression (V11.8) (Z86.59) Surgical History Problems History of Arm surgery FELL OFF LADDER, ENDED UP GETTING PICC LINE DUE TO INFECTION WHICH REQURIED IV ANTIBIOTICS History of Colonoscopy 08/2020 - normal History of [place] tooth extraction Family History Mother Family history of Alive and well Father Family history of cardiac disorder (V17.49) (Z82.49) Brother Family history of Crohn's disease (V18.59) (Z83.79) Other Denied: Family history of malignant neoplasm of colon Social History Problems Caffeine use (V49.89) (Z78.9) 2 SODAS Current smoker (305.1) (F17.200) 1/2 PPD Does not have living will Marijuana daily No illicit drug use Rarely consumes alcohol (V49.89) (Z78.9) Allergies Medication Amoxicillin CAPS Recorded By: Tisha Juarez; 08/10/2020 8:40:58 AM Penicillins Recorded By: Tisha Juarez; 08/10/2020 8:40:58 AM Current Meds Medication NameInstruction Adderall XR 20 MG Oral Capsule Extended Release 24 HourTAKE 1 CAPSULE DAILY FOR ADHD. Benadryl Allergy 25 MG Oral CapsuleTAKE 1 CAPSULE AT BEDTIME. Hyoscyamine Sulfate 0.125 MG Sublingual Tablet SublingualPLACE 1 TABLET UNER THE TONGUE EVERY 4 HOURS NEEDED FOR ABDOMINAL PAIN/SPASMS Wellbutrin SR TBCRTAKE 1 TABLET DAILY. Physical Exam Patient does not report any acute distress. Weight was reviewed. Patient is alert and oriented with normal speech and thought process. There is no conversational dyspnea, cough, or obvious shortness of breath. Affect is appropriate. Signatures Electronically signed by : Bridger Barron DO; Sep 22 2020 7:12AM EST (Author) Normal [facility] CORONAVIRUS 2019, SCREEN ASY MPTOMATICon 08-15-2020 CORONAVIRUS 2019,PCR NOT DETECTED Normal Not Detected [facility] Comment on above: Result Comment: . This assay is designed to detect the N, ORF1ab and/or S genes of SARS-CoV-2 via nucleic acid amplification. A Negative (NOT DETECTED) result does not preclude 2019-nCoV infection since the adequacy of sample collection and/or low viral burden may result in presence of viral nucleic acids below the clinical sensitivity of this test method. Negative (NOT DETECTED) result should not be used as the sole basis for treatment or other patient management decisions. Rather negative results should be combined with clinical observations, patient history, and epidemiological information to make patient management decisions. Fact sheet for providers: https://www.fda.gov/media/009313/download Fact sheet for patients: https://www.fda.gov/media/642026/download This test has received FDA Emergency Use Authorization (EUA) and has been verified by [facility] ([facility]). This test is only authorized for the duration of time that circumstances exist to justify the authorization of the emergency use of in vitro diagnostic tests for the detection of SARS-CoV-2 virus and/or diagnosis of COVID-19 infection under section 564(b)(1) of the Act, 21 U.S.C. 360bbb-3(b)(1), unless the authorization is terminated or revoked sooner. [facility] is certified under CLIA-88 as qualified to perform high complexity testing. Testing is performed in the [facility] laboratories located at [id number] [place] [address]. Performed By: #### C OVSC #### [facility] [id number] [employer] [facility] [employer] [facility] [place] [id number] Covid 19 Resultson 1 Covid 19 Results NEGATIVE COVID-[address] Coronaviruses are common world-wide and are the cause of many common colds. SARS-COV2 is a new coronavirus that began circulating worldwide in 2019 so we are calling it COVID-19. It has been estimated that four out of five patients with COVID-19 will recover at home without the need for medical attention. Symptoms of COVID-19 include cough, fever, shortness of breath, loss of taste or smell and other flu-like symptoms including chills, sore muscles, sore throat, and headache. Severe illness is more common in older people and people with other health problems such as high blood pressure, obesity, and immune system problems. If the test is positive, you have COVID-19. You will be contacted by the ordering physicians office and instructed to remain on home isolation, in accordance with CDC guidelines. You may also be contacted by the [facility] to see if any of your close contacts may have been exposed to the virus and need to quarantine. If the test is negative, you likely do not have COVID-19 at this time, but you still may have a different illness that can spread to other people (like Influenza, or the Flu) and could still be at risk for getting COVID-19. We recommend that you stay away from other people to limit the spread of illness until your symptoms are improving and you are fever-free for 24 hours without the use of fever lowering medications such as acetaminophen or ibuprofen. No test is 100% accurate so if you are still concerned you may have COVID-19, talk to your doctor about the need to continue to stay away from others. Medicines Acetaminophen (Tylenol and others) is generally safe. Anti-inflammatory medications, such as Ibuprofen (Advil or Motrin) or Naproxen (Aleve) can also be used. Chfe-cnf-rcsahag cough and cold medicines can be used according to the instructions on the package. Some onwm-kdp-sxclmub medicines also contain acetaminophen. Make sure you are not taking more than your recommended dose For those not hospitalized, there is no specific treatment available for this illness. Antibiotics do not treat Coronaviruses. Follow-Up Follow up with your doctor by scheduling a virtual visit or consider follow-up at one of our urgent care fever clinics. If you are having difficulty breathing, or are very weak and having difficulty standing, this is a medical emergency. Call 911 or have someone take you to the nearest emergency room immediately. If possible, wear a facemask. Additional guidance from the CDC for patients who tested POSITIVE for COVID-19 How to isolate: Isolate yourself in a specific room at home and limit your contact with others. Use a separate bathroom from other members of the household, when possible. Leave home only to get essential medical care. Do not go to work, school or public areas. Avoid using public transportation, ride-sharing, or taxis. Restrict contact with pets and other animals. If you must care for your pet or be around animals while you are sick, wash your hands before and after your interaction and wear a facemask. Make sure that shared spaces in the home have good airflow, such as by an air conditioner or an opened window, weather permitting. Personal Hygiene Procedures: Wear a face mask when in the same room as other people or pets. If a face mask interferes with your breathing, others should wear a mask when sharing space with you. Frequent hand-washing: wash your hands with soap and water for at least 20 seconds. If soap and water are not available, use alcohol-based hand ferry hand. Avoid touching your eyes, nose, and mouth with unwashed hands. Household Hygiene Procedures: Avoid sharing personal household items such as dishes, glassware, cups, eating utensils, towels or bedding with other people or pets in your home. After use, these items should be washed with soap and hot water. Disinfect all high-touch surfaces every day with antibacterial cleaning solutions such as Lysol wipes, bleach, cleansers, etc. High-touch surfaces include tabletops, doorknobs, bathroom fixtures, toilets, phones, keyboards, tablets and bedside tables. Immediately clean any surfaces that may have blood, poop or body fluids on them, using antibacterial cleaning solutions such as Lysol wipes, bleach, cleansers, etc. If clothing or bedding come into contact with blood, poop or body fluids, they should be washed immediately. Follow the directions on the laundry detergent and clothing labels but hot water is recommended when possible. Stopping home isolation precautions: If possible, consult your doctor before stopping home isolation precautions. According to the CDC, you can discontinue home isolation precautions when you have met both of these criteria: Your fever and respiratory symptoms have been gone for 24 hours without the use of any medicines like ibuprofen (Motrin) and acetaminophen (Tylenol). It has been at least 10 days since your symptoms first appeared. If you are immunosuppressed OR you were admitted to the hospital for this, you should wait until it has been 14 days since your symptoms first appeared. Guidelines for Those Living With and/or Caring For Persons with COVID-19: Read and follow all the recommendations outlined in this handout. Do not permit visitors in the home unless there is an essential need. Wear a facemask when in the same room as the patient. Wear a facemask and gloves (disposable if available) when you touch or have contact with the patient's blood, poop, or body fluids including saliva, phlegm, nasal mucus, vomit or urine. Clean or throw away facemasks and gloves after use and wash your hands with soap and water. You will need to quarantine (stay away from others) for 14 days after your last contact with your family member with COVID-19. The person with COVID-19 is considered contagious 48 hours prior to symptoms beginning (or starting with the day of the positive test if they have no symptoms) for a total of 10 days. Additional resources: [facility] COVID Hotline at 3-011-5APWYME ( ). COVID-19 Careline at (availabl e 24 hours per day, seven days a week if you or a loved one is experiencing anxiety related to the coronavirus pandemic). Clinical research opportunities: is conducting research studies to develop better testing and treatments for COVID. Do you want any information on how to participate Call [phone]. Websites: hospitals.org or www.CDC.gov Follow My Health / My [facility] (for other test results): Revised 05/01/2020 Electronic Signatures: PSCJoya Abarca (ADMIN) (Signature pending) Authored Last Updated: 15-Aug-2020 04:32 by PSCRima [employer] (ADMIN) Normal [facility] CORONAVIRUS 2019, SCREEN ASY MPTOMATICon 08-14-2020 Lab Specimen Source Nasal, Nasopharyngeal Normal [facility] Comment on above: Performed By: #### C OVSC #### [facility] [address] [place] [address] Initial Visit (Gastroenterol ogy)on 08-10-2020 Initial Visit (Gastroenterology) Diagnoses/Problems Assessed Colicky right lower quadrant pain (789.03) (R10.31) Rectal bleeding (569.3) (K62.5) Orders Colicky right lower quadrant pain Colonoscopy; Status:Hold For - Scheduling; Requested for:[id number]; Perform:[facility]; Due:[id number];Ordered; For:Colicky right lower quadrant pain; Ordered By:Bridger Barron; Patient competent to provide consent? : Yes-pt mentally competent to provide consent SocHx: Current smoker Tobacco Use Screening; Status:Complete; Done: [id number] Perform:Not Applicable;Ordered; For:SocHx: Current smoker; Ordered By:Tisha Juarez; Patient Discussion/Summary Impression: 1. Right lower quadrant pain with rectal bleeding 2. Family history of Crohn's disease Recommendation: 1. The diagnosis and evaluation options were discussed today. A colonoscopy was recommended and scheduled. The procedure and sedation were discussed. Risks including but not limited to bleeding, perforation, reaction to medication, missed polyps, damage to other organs, and adverse cardiopulmonary events were discussed. Precautions and risks associated with Covid-19 infection were discussed including pre-endoscopy screening. The importance of following the colonoscopy prep closely was discussed including not eating or drinking anything 4 hours prior to the test time. The requirement to have a salesperson driver present was discussed. All questions were answered. Patient appears medically stable for endoscopy. 2. Patient was instructed to have his mother who is a nurse at Dr. Kaiser''s office draw a CBC, CMP, and CRP. 3. I briefly discussed the possibility of having Crohn's disease. Further work-up will depend on endoscopic evaluation to be scheduled in the next week. Chief Complaint An interactive audio and video telecommunication system which permits real time communications between the patient (at the originating site) and provider (at the distant site) was utilized to provide this telehealth service. Verbal consent was requested and obtained from DENYS LAROSE on this date, 08/10/2020 09:00 AM , for a telehealth visit. Right lower quadrant pain with bleeding History of Present Nnpolil69-ynba-xen male has a 8-month history of intermittent episodes of severe right lower quadrant cramping pain associated with rectal bleeding. This is happened about 15 times over the past 8 months. He said he feels like he has a knife going into his right lower quadrant. Pain intensifies with defecation. He will wake up with this pain and then have a bloody bowel movement. He has about 5 bowel movements throughout the day with blood on the days that he has had these episodes. Normal days he averages about 2 or 3 formed stools a day without bleeding. He denies any change in weight or fever. His brother has Crohn's ileitis. Review of Systems ROS: Const: Denies fatigue, fever and weight loss. CV: Denies chest pain or palpitations. Resp: Denies cough or dyspnea. GI: Denies symptoms other than stated above. Other: Active Problems Problems Colicky right lower quadrant pain (789.03) (R10.31) Rectal bleeding (569.3) (K62.5) Past Medical History Problems History of attention deficit hyperactivity disorder (ADHD) (V11.8) (Z86.59) History of depression (V11.8) (Z86.59) Surgical History Problems History of Arm surgery FELL OFF LADDER, ENDED UP GETTING PICC LINE DUE TO INFECTION WHICH REQURIED IV ANTIBIOTICS History of [place] tooth extraction Family History Mother Family history of Alive and well Father Family history of cardiac disorder (V17.49) (Z82.49) Brother Family history of Crohn's disease (V18.59) (Z83.79) Other Denied: Family history of malignant neoplasm of colon Social History Problems Caffeine use (V49.89) (Z78.9) 2 SODAS Current smoker (305.1) (F17.200) 1/2 PPD Does not have living will Marijuana daily No illicit drug use Rarely consumes alcohol (V49.89) (Z78.9) Allergies Medication Amoxicillin CAPS Recorded By: Tisha Juarez; 08/10/2020 8:40:58 AM Penicillins Recorded By: Tisha Juarez; 08/10/2020 8:40:58 AM Current Meds Medication NameInstruction Adderall XR 20 MG Oral Capsule Extended Release 24 HourTAKE 1 CAPSULE DAILY FOR ADHD. Benadryl Allergy 25 MG Oral CapsuleTAKE 1 CAPSULE AT BEDTIME. Wellbutrin SR TBCRTAKE 1 TABLET DAILY. Vitals Vital Signs Recorded: [id number] 08:40AM Height5 ft 10 in Iktbuw548 lb BMI Extwshlzov22.1 BSA Calculated1.9 Physical Exam Patient does not appear in any acute distress. Weight was reviewed. Patient is alert and oriented with normal speech and thought process. Affect is normal. There is no conversational dyspnea, cough, or obvious shortness of breath. He points to the right lower quadrant as the point of his pain. Signatures Electronically signed by : Bridger Barron DO; Aug 10 2020 9:21AM EST (Author) Normal [facility] FC FLU A AND Bon 08-16-2019 FC FLU A AND B Performed at: [facility] [address] [place] [address] REFERENCE RANGE NORMAL RESULT IS NEGATIVE. INFLUENZA A AND B INFLUENZA A NEGATIVE INFLUENZA B NEGATIVE Normal [facility] Drug Screenon 2017 Barbiturates Negative Normal [facility] Comment on above: Performed By: #### I GN ####The performing lab is in the report. Cocaine Metabolites Negative Normal [facility] Comment on above: Performed By: #### I GN ####The performing lab is in the report. Comment Normal [facility] Comment on above: Result Comment: The following drugs or drug groups have been screened for byImmunoassay at the thresholds listed:Amphetamine class(1000 ng/mL), Barbiturates(300 ng/mL),Benzodiazepines(200 ng/mL),Cocaine(300 ng/mL),Ethanol(50 ng/dL),Opiates(300 ng/mL),Oxycodone(100 ng/mL),and THC(50 ng/mL)A more specific alternative method must be used to confirmpreliminary positive results.NOTE: These results are for medical treatment only. Analysisperformed using non-forensic procedures. Performed By: #### I GN ####The performing lab is in the report. Ethanol Negative [facility] Comment on above: Performed By: #### I GN ####The performing lab is in the report. Oxycodone Negative [facility] Comment on above: Performed By: #### I GN ####The performing lab is in the report. THC Negative [facility] Comment on above: Performed By: #### I GN ####The performing lab is in the report. Urine, amphetamines presence Negative [facility] Comment on above: Performed By: #### I GN ####The performing lab is in the report. Urine, benzodiazepines presence Negative [facility] Comment on above: Performed By: #### I GN ####The performing lab is in the report. Urine, opiates presence Negative [facility] Comment on above: Performed By: #### I GN ####The performing lab [facility] the report. [facility] Barbiturates Negative [facility] Comment on above: Performed By: #### I GN ####The performing lab is in the report. Cocaine Metabolites Negative [facility] Comment on above: Performed By: #### I GN ####The performing lab is in the report. Comment [facility] Comment on above: Result Comment: The following drugs or drug groups have been screened for byImmunoassay at the thresholds listed:Amphetamine class(1000 ng/mL), Barbiturates(300 ng/mL),Benzodiazepines(200 ng/mL),Cocaine(300 ng/mL),Ethanol(50 ng/dL),Opiates(300 ng/mL),Oxycodone(100 ng/mL),and THC(50 ng/mL)A more specific alternative method must be used to confirmpreliminary positive results.NOTE: These results are for medical treatment only. Analysisperformed using non-forensic procedures. Performed By: #### I GN ####The performing lab is in the report. Ethanol Negative [facility] Comment on above: Performed By: #### I GN ####The performing lab is in the report. Oxycodone Negative Normal [facility] Comment on above: Performed By: #### I GN ####The performing lab is in the report. THC Negative [facility] Comment on above: Performed By: #### I GN ####The performing lab is in the report. Urine, amphetamines presence Negative [facility] Comment on above: Performed By: #### I GN ####The performing lab is in the report. Urine, benzodiazepines presence Negative [facility] Comment on above: Performed By: #### I GN ####The performing lab is in the report. Urine, opiates presence Negative [facility] Comment on above: Performed By: #### I GN ####The performing lab is in the report. Vital Signs Date Time Vital Sign Value Performing Clinician Jose L carnes 01-06-2025 06:30-0400 Body temperature 98 [degF] Dr. Any Kaiser MD Work Phone: [facility] 01-06-2025 06:30-0400 Diastolic blood pressure 89 mm[Hg] Dr. Any Kaiser MD Work Phone: [facility] 01-06-2025 06:30-0400 Heart rate 61 /min Dr. Any Kaiser MD Work Phone: [facility] 01-06-2025 06:30-0400 Respiratory rate 16 /min Dr. Any Kaiser MD Work Phone: [facility] 01-06-2025 06:30-0400 SaO2% (BldA) [Mass fraction] 98 % Dr. Any Kaiser MD Work Phone: [facility] 01-06-2025 06:30-0400 Systolic blood pressure 167 mm[Hg] Dr. Any Kaiser MD Work Phone: [facility] 01-06-2025 05:32-0400 Body height 177.[address] Any Kaiser MD Work Phone: [facility] 01-06-2025 05:32-0400 Body mass index (BMI) [Ratio] 26.6 kg/m2 Dr. Any Kaiser MD Work Phone: [facility] 01-06-2025 05:32-0400 Body weight 84.[address] Any Kaiser MD Work Phone: [facility] 06-11-2022 15:39-0500 Body temperature 98.29 [degF] Inglish Kaput [employer]OTHER[employer]ANT MANAGER.FACILITY SECURITY OFFICER Work Phone: [facility] 06-11-2022 15:39-0500 Body weight 83.46 kg Inglish Kaput [employer]OTHER[employer] PLANT MANAGER.FACILITY SECURITY OFFICER Work Phone: [facility] 06-11-2022 15:39-0500 Diastolic blood pressure 110 mm[Hg] Inglish Kaput GEOTHERMAL PLANT MANAGER.FACILITY SECURITY OFFICER Work Phone: [facility] 06-11-2022 15:39-0500 Heart rate 102 /min Inglish Kaput GEOTHERMAL PLANT MANAGER.FACILITY SECURITY OFFICER Work Phone: [facility] 06-11-2022 15:39-0500 Respiratory rate 20 /min Inglish Kaput GEOTHERMAL PLANT MANAGER.FACILITY SECURITY OFFICER Work Phone: [facility] 06-11-2022 15:39-0500 SaO2% (BldA) [Mass fraction] 98 % Inglish Kaput GEOTHERMAL PLANT MANAGER.FACILITY SECURITY OFFICER Work Phone: [facility] 06-11-2022 15:39-0500 Systolic blood pressure 157 mm[Hg] Inglish Kaput GEOTHERMAL PLANT MANAGER.FACILITY SECURITY OFFICER Work Phone: [facility] Encounters Encounter Date Encounter Type Care Provider Facility Start: 01-06-2025 End: 01-06-2025 Emergency department patient visit Dr. Any Kaiser MD Work Phone: -Emergency Department Work Phone: Start: 11-28-2024 End: 12-02-2024 ambulatory ANY KAISER MD Facility:A Start: 10-06-2023 End: 10-06-2023 ambulatory JUAN R SLAUGHTER APRN-ROSELIA Facility:A Start: 06-11-2022 ambulatory FC-GEOVANY ENCISO Faci lity:[facility] Start: 06-11-2022 End: 06-11-2022 ambulatory Facility:[facility] Start: 06-11-2022 End: 06-11-2022 Patient encounter procedure Geovany Enciso APRN.CNP Work Phone: [facility] Comment on above: Sore throat (Primary Dx); Fever, unspecified fever cause Start: 09-28-2017 Ambulatory MARK DOYLE [facility] Start: 08-26-2017 Ambulatory UNKNOWN PROVIDER [facility] Procedures Date Procedure Procedure Detail Performing Clinician Start: 06-11-2022 RAPID STREP TEST B/O Jayy Valladares APRN.CNP Work Phone: Plan of Treatment Date Care Activity Detail Author Start: 01-06-2025 [facility] Start: 06-11-2022 End: 08-11-2022 Bacteria identified in Throat by Culture THROAT CULTURE Microbiology Routine Sore throat Expected: 06/11/2022, Expires: 08/11/2022 [facility] Work Phone: Comment on above: Expected: 06/11/2022 , Expires: 08/11/2022 Start: 02-13-2022 Influenza vaccination INFLUENZA (#1) [facility] Start: 06-15-2021 DEPRESSION ASSESSMENT DEPRESSION ASS ESSMENT [facility] Start: 2010 Urine microalbumin profile DTAP,TDAP,TD (1 - Tdap) [facility] Start: 2009 HEPATITIS C SCREENING HEPATITIS C SC MICHAEL [facility] Start: 2009 HIV SCREENING HIV SCREENING [facility] Start: 1997 PNEUMOCOCCAL (1 - PCV) PNEUMOCOCCAL (1 - PCV) [facility] Start: 01-05-1992 COVID-19 VACCINE (#1) COVID-19 VACCI NE (#1) [facility] Start: 1991 HEPATITIS B (1 of 3 - 3-dose series) HEPATITIS B (1 of 3 - 3-dose series) [facility] FLU A/B B/O FLU A/B B/O Lab Routine Fever, unspecified fever cause Ordered: 06/11/2022 [facility] Work Phone: Comment on above: Ordered: 06/11/2022 Patient Education ED Back Sprain/Strain [facility] Work Phone: Payers Date Payer Category Payer Self-pay 2025 Unknown [id number] 2024 Unknown [id number] 2023 Unknown [id number] 1990 Unknown [id number] 1991 Unknown [id number] Unknown [id number] Unknown [id number] Social History Date Type Detail Facility Start: 06-11-2022 End: 01-06-2025 Tobacco smoking status NHIS Smokes tobacco daily [facility] History of tobacco use Cigarette Smoker [facility] [employer] Start: 06-11-2022 Cigarettes smoked current (pack per day) - Reported 0.[address] [facility] Start: 06-11-2022 Tobacco use and exposure Smokeless tobacco non-user [facility] Start: 06-11-2022 Alcohol intake Ex-drinker (finding) [facility] Start: 1990 Sex Assigned At Not on file [facility] Start: 1990 Sex Assigned At Male [facility] Mental Status Date Assessment Result Facility 01-06-2025 Cognitive function Level Of Cons ciousness Awake;Alert;Appropriate;Follow s Commands [facility] Work Phone: Progress note 06-11-2022 Note Date & Type Note Facility 06-11-2022 Note HNO ID: [id number] Author: Geovany Enciso APRN.FACILITY SECURITY OFFICER Service: ? Author Type: Nurse Practitioner Type: Progress Notes Filed: 06/11/2022 4:31 PM Note Text: June 11, 2022 Subjective Chief Complaint: Sore Throat (X today/Ibuprofen last dose today), Ear Problem (Left ear pa x this am), and Fever (X today/102.7) HPI: Denys Larose is a 31 year old male who presents today for for a 2 day history of sore throat, ear pain, cough, fever, and general malaise. States he was exposed to strep throat. No OTC medications. No other concerns at this time. PAST MEDICAL HISTORY Diagnosis Date Attention deficit hyperactivity disorder Depression MRSA (methicillin resistant staph aureus) culture positive Suicide attempt (HCC) PAST SURGICAL HISTORY Procedure Laterality Date DENTAL SURGERY HX History reviewed. No pertinent family history. Social History Tobacco Use Smoking status: Every Day Packs/day: 0.50 Types: Cigarettes Smokeless tobacco: Never Vaping Use Vaping Use: Former Substances: THC Substance Use Topics Alcohol use: Not Currently Drug use: Not Currently Types: Cocaine, Marijuana ALLERGIES Allergen Reactions Penicillins Rash per [facility] patient states rash all over body There is no immunization history on file for this patient. Current Medications: No prescriptions on file. Review of Systems Constitutional: Positive for chills, fever and malaise/fatigue. HENT: Positive for congestion and sore throat. Respiratory: Positive for cough and shortness of breath. Negative for wheezing. Cardiovascular: Negative for chest pain and palpitations. Gastrointestinal: Negative for diarrhea, nausea and vomiting. Musculoskeletal: Positive for myalgias. Skin: Negative for rash. Neurological: Positive for headaches. Objective BP 157/110 Pulse 102 Temp 98.3 Resp 20 Wt 184 lb (83.5kg) SpO2 98% Physical Exam Vitals and nursing note reviewed. Constitutional: General: He is not in acute distress. Appearance: He is not diaphoretic. Comments: Appears ill HENT: Head: Normocephalic and atraumatic. Right Ear: Tympanic membrane, ear canal and external ear normal. Left Ear: Tympanic membrane, ear canal and external ear normal. Nose: Mucosal edema and rhinorrhea present. Mouth/Throat: Lips: Cherry. Pharynx: Uvula midline. Pharyngeal swelling and posterior oropharyngeal erythema present. Cardiovascular: Rate and Rhythm: Normal rate and regular rhythm. Heart sounds: Normal heart sounds. Pulmonary: Effort: Pulmonary effort is normal. No respiratory distress. Breath sounds: Normal breath sounds. No wheezing or rales. Lymphadenopathy: Head: Right side of head: No submental, submandibular or tonsillar adenopathy. Left side of head: No submental, submandibular or tonsillar adenopathy. Skin: General: Skin is warm and dry. Findings: No rash. Neurological: Mental Status: He is alert and oriented to person, place, and time. ASSESSMENT/PLAN: 1. Sore throat - ICD9: 462, ICD10: J02.9 (primary diagnosis) - suspect strep - Rapid Strep negative in the office today and Throat culture pending - Discussed supportive care treatment with fluids, rest and analgesia. - The patient should follow up in one week if symptoms persist or worsen - RAPID STREP TEST B/O - THROAT CULTURE 2. Fever, unspecified fever cause - ICD9: 780.60, ICD10: R50.9 Flu negative - FLU A/B B/O Prescription instructions reviewed with patient as applicable. Patient advised if symptoms do not improve or if symptoms worsen sooner, to contact their primary care physician. Potential red flag symptoms discussed with the patient. Reviewed appropriate action plan to take if red flag symptoms occur. Patient agreeable to treatment plan. Geovany Enciso APRN.CNP [facility] Instructions 06-11-2022 Patient Instructions Note Date & Type Note Facility 06-11-2022 Instructions Geovany Enciso APRN.CNP - 06/11/2022 4:31 PM EST Your rapid strep was negative, we will call in 2-3 days if throat culture is positive. Will treat based on exposure Gargle with warm salt water, I recommend Tylenol or Ibuprofen for sore throat if needed. I recommend warm liquids and soft foods until symptoms resolve. Follow-up for recheck if your symptoms worsen or do not improve in 5-7 days. If you are having any trouble swallowing or breathing, seek immediate care in the ER for further evaluation. documented in this encounter [facility] History of Present illness Narrative 06-11-2022 Geovany Enciso APRN.CNP - 06/11/2022 4:18 PM EST Note Date & Type Note Facility 06-11-2022 History of Presen t illness Narrative June 11, 2022 Subjective Chief Complaint: Sore Throat (X today/Ibuprofen last dose today), Ear Problem (Left ear pa x this am), and Fever (X today/102.7) HPI: Denys Larose is a 31 year old male who presents today for for a 2 day history of sore throat, ear pain, cough, fever, and general malaise. States he was exposed to strep throat. No OTC medications. No other concerns at this time. PAST MEDICAL HISTORY Diagnosis Date Attention deficit hyperactivity disorder Depression MRSA (methicillin resistant staph aureus) culture positive Suicide attempt (HCC) PAST SURGICAL HISTORY Procedure Laterality Date DENTAL SURGERY HX History reviewed. No pertinent family history. Social History Tobacco Use Smoking status: Every Day Packs/day: 0.50 Types: Cigarettes Smokeless tobacco: Never Vaping Use Vaping Use: Former Substances: THC Substance Use Topics Alcohol use: Not Currently Drug use: Not Currently Types: Cocaine, Marijuana ALLERGIES Allergen Reactions Penicillins Rash per [facility] patient states rash all over body There is no immunization history on file for this patient. Current Medications: No prescriptions on file. Review of Systems Constitutional: Positive for chills, fever and malaise/fatigue. HENT: Positive for congestion and sore throat. Respiratory: Positive for cough and shortness of breath. Negative for wheezing. Cardiovascular: Negative for chest pain and palpitations. Gastrointestinal: Negative for diarrhea, nausea and vomiting. Musculoskeletal: Positive for myalgias. Skin: Negative for rash. Neurological: Positive for headaches. Objective BP 157/110 Pulse 102 Temp 98.3 Resp 20 Wt 184 lb (83.5kg) SpO2 98% Physical Exam Vitals and nursing note reviewed. Constitutional: General: He is not in acute distress. Appearance: He is not diaphoretic. Comments: Appears ill HENT: Head: Normocephalic and atraumatic. Right Ear: Tympanic membrane, ear canal and external ear normal. Left Ear: Tympanic membrane, ear canal and external ear normal. Nose: Mucosal edema and rhinorrhea present. Mouth/Throat: Lips: Cherry. Pharynx: Uvula midline. Pharyngeal swelling and posterior oropharyngeal erythema present. Cardiovascular: Rate and Rhythm: Normal rate and regular rhythm. Heart sounds: Normal heart sounds. Pulmonary: Effort: Pulmonary effort is normal. No respiratory distress. Breath sounds: Normal breath sounds. No wheezing or rales. Lymphadenopathy: Head: Right side of head: No submental, submandibular or tonsillar adenopathy. Left side of head: No submental, submandibular or tonsillar adenopathy. Skin: General: Skin is warm and dry. Findings: No rash. Neurological: Mental Status: He is alert and oriented to person, place, and time. ASSESSMENT/PLAN: 1. Sore throat - ICD9: 462, ICD10: J02.9 (primary diagnosis) - suspect strep - Rapid Strep negative in the office today and Throat culture pending - Discussed supportive care treatment with fluids, rest and analgesia. - The patient should follow up in one week if symptoms persist or worsen - RAPID STREP TEST B/O - THROAT CULTURE 2. Fever, unspecified fever cause - ICD9: 780.60, ICD10: R50.9 Flu negative - FLU A/B B/O Prescription instructions reviewed with patient as applicable. Patient advised if symptoms do not improve or if symptoms worsen sooner, to contact their primary care physician. Potential red flag symptoms discussed with the patient. Reviewed appropriate action plan to take if red flag symptoms occur. Patient agreeable to treatment plan. Geovany Enciso APRN.ROSELIA documented in this encounter [facility] Evaluation note Note Date & Type Note Facility Evaluation note Diagnosis Sore throat- Primary Acute pharyngitis Fever, unspecified fever cause documented in this encounter [facility] Evaluation note Note Date & Type Note Facility Evaluation note No assessment information availa ble [facility] Work Phone: Hospital Discharge instructions Note Date & Type Note Facility Hospital Discharge instructions Additional Instructions Hold your meloxicam. Take prescription medicines as prescribed. No driving or heavy machinery while using diazepam. Follow-up with your doctor. [facility] Work Phone: Reason for referral (narrative) Note Date & Type Note Facility Reason for referral (narrative) No reason for referral information available [facility] Work Phone: Summary Purpose Family History No Family History Records FoundNo Family History Records FoundNo Family History Records FoundNo Family History Records FoundNo Family History Records FoundNo Family History Records FoundNo Family History Records FoundNo Family History Records FoundNo Family History Records Found Advance Directives No Advanced Directives Records Found Advance Directive Response Recorded Date/ Time Do you have a Healthcare Power of Feller Seam Operator? Yes January 06, 2025 5:32am Chief Complaint and Reason for Visit Chief Complaint Admit Date BACK PAIN January 06, 2025 5:27 am Additional Source Comments (unrecognized sect ion and content) No Status Records FoundNo Status Records FoundNo Status Records FoundNo Status Records FoundNo Status Records FoundNo Status Records FoundNo Status Records FoundNo Status Records FoundNo Status Records Found INFORMATION SOURCE (unrecogn ized section and content) DATE CREATED AUTHOR 12/03/2017 [facility] DATE CREATED AUTHOR AUTHOR'S ORGANIZ ATION 08/25/2019 [facility] DATE CREATED AUTHOR AUTHOR'S ORGANIZ ATION 09/21/2020 [facility] DATE CREATED AUTHOR AUTHOR'S ORGANIZ ATION 09/22/2020 [employer] DATE CREATED AUTHOR AUTHOR'S ORGANIZ ATION 06/14/2022 [facility] DATE CREATED AUTHOR AUTHOR'S ORGANIZ ATION 07/09/2022 [facility] DATE CREATED AUTHOR AUTHOR'S ORGANIZ ATION 10/14/2023 [facility] ([place] DATE CREATED AUTHOR AUTHOR'S ORGANIZ ATION 12/05/2024 [facility] DATE CREATED AUTHOR AUTHOR'S ORGANIZ ATION 01/14/2025 [facility] Source Comments (unrecognize d section and content) In the event this informatio n is protected by the Federal Confidentiality of Alcohol and Drug Abuse Patient Records regulations: The Federal rules restrict any use of the information to criminally investigate or prosecute any alcohol or drug abuse patient.[facility] Reason for Visit (unrecogniz ed section and content) Reason Comments Sore Throat X todayIbuprofen las t dose today Ear Problem Left ear pa x this a m Fever X [id number] Care Teams (unrecognized sec tion and content) Team Status: Active Member Role/Relationship Status Dates Dr. Any Kaiser MD Primary Care Provider Active Team Status: Inactive Member Role/Relationship Status Dates Dr. Any Kaiser MD Primary Care Provider Active Start: January 06, 2025 End: January 06, 2025 Dr. Teto Cantor DO Emergency Provider Active Start : January 06, 2025 End: January 06, 2025 Goals (unrecognized section and content) Goals may be documented in a n alternate section FOR RECORDS PERTAINING TO PATIENTS WHO ARE OR HAVE BEEN ENROLLED IN A CHEMICAL DEPENDENCY/SUBSTANCEABUSE PROGRAM, SOME INFORMATION MAY BE OMITTED. This clinical summary was aggregated from multiple sources. Caution should be exercised in using it in the provision of clinical care. This summary normalizes information from multiple sources, and as a consequence, information in this document may materially change the coding, format and clinical context of patient data. In addition, data may be omitted in some cases. CLINICAL DECISIONS SHOULD BE BASED ON THE PRIMARY CLINICAL RECORDS. [employer] provides no warranty or guarantee of the accuracy or completeness of information in this document.
[2025-01-25 09:00] VITALS: BP 117/84; PULSE 87; RESP 16; O2SAT 97
[2025-01-25 10:31] VITALS: BP 154/99; PULSE 61; RESP 16; TEMP 36.6; O2SAT 99
== END 2025-01-25 10:42 | disposition home or self-care (01) ==
PROVIDERS: Emergency Provider Surgery; Visit Provider Surgery
DX: N13.2 Hydronephrosis with renal and ureteral calculous obstruction (principal); F17.210 Nicotine dependence, cigarettes, uncomplicated
CPT/HCPCS: 74176; 76870; 80048; 81001; 83605; 85025; 93976; 96361; 96374; 96375; 99283; A4216; J2405

== ENCOUNTER → 2025-02-02 | Outpatient (CLI) | payer BC, SELFPAY ==
--- NOTE | 2025-02-02 02:00 | CALC_PTH ---
PATIENT: KEIRY LAROSE LOC: [facility] U#:[id number] AGE/SX: 34/M ROOM: RE02/02/[address]: Dr. Clint Concepcion MD : 1990 BED: DIS: 02/02/2025 SPEC #: [id number] RECD: 02/03/25 08:00 STATUS: NURA REYvonne #: [id number] VIBHA: 02/02/25 02:[address]: Clint Concepcion DEPT: SURGICAL PATHOLOGY RECD BY: Harshil Herrera ENTERED: 02/03/25 09:52 SP TYPE: Calculi OTHR DR: Dr. Dre Whitney MD Tissues: A - CALCULI Procedures: Surgery Specimen Level I HEADER OPERATION: Not noted PRE-OP DIAGNOSIS: Calculus of kidney TISSUE SUBMITTED: A- Calculi GROSS DIAGNOSIS A. Kidney, calculi: * - Urolithiasis (gross examination only). - Chemical analysis pending, to be reported separately GROSS DESCRIPTION A. Received fresh labeled the patient's name and date of . Designated as calculi is a 0.3 cm irregular, brown calculus. No sections are submitted. The specimen is sent for stone analysis. [place] 02/03/2025 CPT:66800
== END | disposition home or self-care (01) ==
LOC: LAB 15:56
PROVIDERS: Referring Provider Urology; Visit Provider Urology
DX: N20.0 Calculus of kidney (principal)
CPT/HCPCS: 82360; 88300